=== PATIENT | female | born 1965 | race Caucasian/White ===

== ENCOUNTER → 2020-11-27 | Day surgery (SDC) | payer MEDICARE, OTHER ==
[~2020-11-27] MED LIST: ASPIRIN EC81 MG PO; AUGMENTIN 875-1 EACH PO; BENADRYL 25MG C25 MG PO; BENADRYL25 MG PO; CALCIUM600 MG PO; CELEBREX 200MG200 MG PO; CELEXA20 MG PO; CENTRUM SILVER1 EAC1 PO; CITRATE OF MAG296 ML PO; ECOTRIN81 MG PO; EFFEXOR XR 150150 MG PO; EFFEXOR XR75 MG PO; FAMOTIDINE20 MG PO; FARXIGA10 MG PO; GLYBURIDE5 MG PO; LEVOTHYROXINE100 MCG PO; LEVOTHYROXINE112 MC1 PO; LISINOPRIL10 MG PO; MELATONIN5 M2 PO; NITROFURANTOIN100 MG PO; PRAVACHOL40 MG PO; PRAVASTATIN SOD40 MG PO; PROBIOTIC1 EAC2 PO; PROTONIX 40 MG40 M1 PO; ZANTAC300 MG PO
== END | disposition home or self-care (01) ==
LOC: OR 07:14
DX: K92.1 Melena (principal); I85.00 Esophageal varices without bleeding; I10 Essential (primary) hypertension; E89.0 Postprocedural hypothyroidism; E11.9 Type 2 diabetes mellitus without complications; D50.0 Iron deficiency anemia secondary to blood loss (chronic); K21.9 Gastro-esophageal reflux disease without esophagitis; F32.9 Major depressive disorder, single episode, unspecified; M19.90 Unspecified osteoarthritis, unspecified site; E78.5 Hyperlipidemia, unspecified; F17.210 Nicotine dependence, cigarettes, uncomplicated; Z88.5 Allergy status to narcotic agent; Z79.82 Long term (current) use of aspirin; Z79.84 Long term (current) use of oral hypoglycemic drugs; Z79.899 Other long term (current) drug therapy
CPT/HCPCS: 82962; J2704; J7030

== ENCOUNTER 2020-12-07 22:43 | Emergency (ER) | payer MEDICARE, OTHER ==
[~2020-12-07 22:43] MED LIST changes: -CITRATE OF MAG296 ML PO
[2020-12-08] MEDS ORDERED: CITRATE OF MAG296 ML PO (04:45)
== END 2020-12-08 04:49 | disposition home or self-care (01) ==
LOC: ER1 22:43
DX: K59.00 Constipation, unspecified (principal)
CPT/HCPCS: 74018; 99283

== ENCOUNTER 2021-01-20 08:35 | Emergency (ER) | payer MEDICARE, OTHER ==
[~2021-01-20 08:35] MED LIST changes: +CITRATE OF MAG296 ML PO
[2021-01-20 09:11] LABS: RED BLOOD COUNT 2.67 M/UL (4.00-5.10); WHITE BLOOD COUNT 10.8 K/UL (4.5-11.0)
[2021-01-20 10:00] LABS: HEMOGLOBIN 5.8 gm/dl (12.3-15.3)
== END 2021-01-20 13:00 | disposition short-term general hospital (02) ==
LOC: ER1 08:35
PROVIDERS: Family Medicine
DX: A41.9 Sepsis, unspecified organism (principal); N39.0 Urinary tract infection, site not specified; I10 Essential (primary) hypertension; E11.649 Type 2 diabetes mellitus with hypoglycemia without coma; J96.91 Respiratory failure, unspecified with hypoxia; R77.8 Other specified abnormalities of plasma proteins; I85.00 Esophageal varices without bleeding; F17.200 Nicotine dependence, unspecified, uncomplicated; Z90.710 Acquired absence of both cervix and uterus; Z88.5 Allergy status to narcotic agent; Z79.899 Other long term (current) drug therapy; Z20.822 Contact with and (suspected) exposure to COVID-19
CPT/HCPCS: 0240U; 36430; 36600; 71045; 80053; 81001; 82009; 82270; 82550; 82553; 82803; 82962; 83605; 83735; 83874; 83880; 84100; 84484; 85025; 86850; 86900; 86901; 86920; 87040; 87077; 87086; 87186; 93005; 94664; 96374; 96375; 96376; 99285; J0696; J2930; P9016